=== PATIENT | male | born 1990 | race Caucasian/White ===

== ENCOUNTER 2020-03-25 10:42 | Emergency (ER) | payer SELFPAY ==
--- NOTE | 2020-03-25 11:14 | EDM.PDOC ---
ED HPI GENERAL MEDICAL PROBLEM - General Chief Complaint: ENT Problem Stated Complaint: SWELLING IN JAW AND GUM WHERE TOOTH WAS REMOVED Time Seen by Provider: 03/25/20 11:03 Source of Information: Reports: Patient History Limitations: Reports: No Limitations - History of Present Illness INITIAL COMMENTS - FREE TEXT/NARRATIVE: The patient presents with left lower jaw pain. Last Thursday he had an abscessed wisdom tooth removed in the right lower jaw. There were no complications. A couple days ago he started having pain, swelling of his face and some drainage. He has no fever or chills. Onset: Gradual Duration: Day(s): Location: Reports: Face Quality: Reports: Sharp Severity: Moderate Improves with: Reports: None Worsens with: Reports: None Associated Symptoms: Denies: Chest Pain, Cough, Fever/Chills, Headaches, Nausea/Vomiting, Shortness of Breath Tooth/Teeth Pain Score (Numeric/FACES): 7 - Related Data Allergies Allergy/AdvReac Type Severity Reaction Status Date / Time No Known Allergies Allergy Verified 11/14/16 20:42 CDT Home Meds: Home Meds . [No Known Home Meds] 11/14/16 [History] Past Medical History - Past Health History Medical/Surgical History: Denies Medical/Surgical History - Infectious Disease History Infectious Disease History: Reports: Chicken Pox Social & Family History - Family History Family Medical History: Noncontributory - Caffeine Use Caffeine Use: Reports: Coffee Caffeine Use Comment: 5cups/day ED ROS ENT - Review of Systems Review Of Systems: See Below Constitutional: Reports: No Symptoms HEENT: Reports: Dental Pain Respiratory: Reports: No Symptoms Cardiovascular: Reports: No Symptoms Endocrine: Reports: No Symptoms GI/Abdominal: Reports: No Symptoms : Reports: No Symptoms ED EXAM, ENT - Physical Exam Exam: See Below Exam Limited By: No Limitations General Appearance: Alert, No Apparent Distress Ears: Normal External Exam Nose: Normal Inspection Mouth/Throat: Other (Pain upon palpation to the right lower jaw with some erythema and edema and pain upon palpation to the right 3rd molar.) Course - Vital Signs Last Recorded V/S: Last Vital Signs Temp 97.5 F 03/25/20 11:03 Pulse 97 03/25/20 11:03 Resp 16 03/25/20 11:03 BP 137/96 H 03/25/20 11:03 Pulse Ox 96 03/25/20 11:03 Departure - Departure Time of Disposition: 11:15 Disposition: Home, Self-Care 01 Condition: Good Clinical Impression: Dental abscess - Discharge Information *PRESCRIPTION DRUG MONITORING PROGRAM REVIEWED*: Not Applicable *COPY OF PRESCRIPTION DRUG MONITORING REPORT IN PATIENT BRIAN: Not Applicable Referrals: PCP,None [Primary Care Provider] - Forms: ED Department Discharge, ED Return to Work/School Form Additional Instructions: Take the pen VK 4 times per day for 10 days. Take tylenol or motrin as needed for pain. If that does not help, try the hydrocodone. Put warm compresses on your face 3 times per day for a couple of days. Please return if you are worse. Sepsis Event Note (ED) - Evaluation Sepsis Screening Result: No Definite Risk - Focused Exam Vital Signs: Vital Signs Temp Pulse Resp BP Pulse Ox 03/25/20 11:03 97.5 F 97 16 137/96 H 96
[2020-03-25 12:15] VITALS: BP 133/83; PULSE 94
== END 2020-03-25 11:46 | disposition home or self-care (01) ==
LOC: JD.ED 10:42
DX: K04.7 Periapical abscess without sinus (principal)
CPT/HCPCS: 99283